=== PATIENT | male | born 1970 ===

== ENCOUNTER 2019-03-02 09:49 | Day surgery (SDC) | payer OTHER, SELFPAY ==
--- NOTE | 2019-03-02 | PATH_ITS ---
[facility] Accession Number: [id number] . 01 Material submitted: . PART A: colon - 25CM COLON POLYPS X3 PART B: colon - 90CM COLON POLYPS X3 PART C: colon - 80CM COLON POLYP PART D: colon - 40CM COLON POLYP . 02 Diagnosis: A. Colon At 25 CM, Polyps: Fragment of tubular adenoma and fragments of hyperplastic polyp (3 polyps removed). . B. Colon At 90 CM, Polyps: Fragments of tubular adenoma and fragments of hyperplastic polyp (3 polyps removed). . C. Colon At 80 CM, Polyp: Serrated lesion, cannot exclude sessile serrated adenoma. . D. Colon At 40 CM, Polyp: Submucosal leiomyoma. Negative for cytologic dysplasia or malignancy. [facility] 03/03/2019 1458 Local . 02 Electronically signed: . Ángel Daugherty MD, PhD, Pathologist NPI- [id number] . 01 Gross description: . Part A: 25CM COLON POLYPS X3: Received in formalin are multiple fragment(s) of poole, soft tissue measuring 0.1 x 0.1 x 0.1 cm to 0.3 x 0.2 x 0.2 cm submitted entirely in 1 cassette(s) Part B: 90CM COLON POLYPS X3: Received in formalin are multiple fragment(s) of poole, soft tissue measuring 0.1 x 0.1 x 0.1 cm to 0.3 x 0.2 x 0.2 cm submitted entirely in 1 cassette(s) Part C: 80CM COLON POLYP: Received in formalin is 1 fragment(s) of poole, soft tissue measuring 0.6 x 0.5 x 0.3 cm submitted entirely in 1 cassette(s) Part D: 40CM COLON POLYP: Received in formalin is 1 fragment(s) of poole, soft tissue measuring 0.6 x 0.6 x 0.5 cm submitted entirely in 1 cassette(s) /DM 03/02/[address] [place] [address] . Pathologist provided ICD-10: D12.6, K63.5 . 02 CPT . 103401, 421900, 005804, 280552 Performed at: 01 [facility] [address] [place] [address], [place], [place] [id number] MD Clyde Helms MD Phone: [phone] Performed at: 02 [facility] [address] [place], [place] [id number] MD Cassidy Gomez MD Phone: [phone]
[2019-03-02 10:24] VITALS: BP 142/95; PULSE 141; RESP 20; TEMP 36.4; O2SAT 100
[2019-03-02 10:28] VITALS: BMI 25.7
[2019-03-02] MEDS: SODIUM CHLORIDE 0.9% 1,000 ML 200 ML IV (10:35)
--- NOTE | 2019-03-02 10:45 | PM.HP.1 ---
History of Present Illness History of Present Illness Date Patient Seen: 03/02/19 Time Patient Seen: 10:45 Chief complaint: [id number] SCREENING COLONOSCOPY Narrative: The patient is a gentleman who had polyps removed about 6 years ago. He is here for follow-up colonoscopy. This is for screening purposes. Patient History Family & Social History Social History: household members none Meds Home Medications and Allergies Home Medications Medication Instructions Recorded Confirmed Type Unisom (doxylamine) 25 mg PO PRN PRN #0 MDD 30 05/07/16 03/02/19 History aspirin 325 mg PO PRN PRN #0 05/07/16 03/02/19 History lorazepam 1 - 2 tab PO Q4HP PRN #30 tab 05/08/16 03/02/19 Rx metformin [Glucophage] 500 mg PO BIDCC #60 tab 05/08/16 03/02/19 Rx oxycodone-acetaminophen [Percocet] 1 tab PO Q4HP PRN #30 tab 05/08/16 03/02/19 Rx amitriptyline 25 mg PO DAILY 03/02/19 03/02/19 History amlodipine 10 mg PO DAILY 03/02/19 03/02/19 History diazepam 10 mg PO BID PRN 03/02/19 03/02/19 History gabapentin 600 mg PO Q12H 03/02/19 03/02/19 History glipizide 10 mg PO BID 03/02/19 03/02/19 History sertraline 50 mg PO DAILY 03/02/19 03/02/19 History trazodone 50 mg PO DAILY 03/02/19 03/02/19 History Allergies Allergy/AdvReac Type Severity Reaction Status Date / Time Penicillins [PENICILLINS] Allergy Intermediate RASH Unverified 06/25/17 11:46 Review of Systems Review of Systems ROS Unobtainable: All systems reviewed & are unremarkable except as noted in HPI and below Gastrointestinal Comments: Has lost about 50 lb due to stress and cessation of alcohol use Exam Vital Signs (past 8 hours): - 03/02/19 10:24 Temperature 97.5 F L Pulse Rate 141 H Respiratory Rate 20 Blood Pressure 142/95 H Pulse Oximetry 100 Oxygen Delivery Method Room Air Narrative Exam Narrative: Pleasant cooperative patient no apparent distress. Lungs are clear to auscultation. No rales or rhonchi. Heart regular rate and rhythm no murmur gallop. Abdomen is soft nontender without mass. Patient has a large diastasis recti. No obvious hernias. Patient is alert and oriented x3. Assessment & Plan Assessment & Plan narrative: The patient for a screening colonoscopy. I have discussed the procedure with them. Risks of bleeding, perforation which would necessitate major operation, failure to find remove all lesions, the potential tattoo were all discussed. All questions were answered. They wished to proceed.
--- NOTE | 2019-03-02 10:51 | PM.PREOP ---
Pre-operative Note Interval Note History & Physical reviewed/Exam performed by Physician: Yes Changes to H&P: No ASA Class (for procedural sedation): II
[2019-03-02] MEDS: MIDAZOLAM 5 MG/5 ML VIAL IV (11:30)
[2019-03-02] MEDS: fentaNYL 250 MCG/5 ML INJ IV (11:30)
--- NOTE | 2019-03-02 11:46 | PM.OP.ENDO ---
Operative Date/Time/Diagnoses Date of procedure: 03/02/19 Time of procedure: 11:46 Pre-op diagnosis: Screening exam. Last exam about 5 years ago. Patient had polyps removed at that time. Post-op diagnosis: same (Multiple polyps) Procedure & Clinicians Study performed: Colonoscopy with cold biopsy and hot snare polypectomy Same procedure as scheduled: Yes Indications: Screening. Patient 48. Has a history of polyps on his prior exam. Surgeon: Jorge Mathias Procedure Notes SCOAP/Timeout: Perform Procedure in detail: The patient was placed in the left lateral decubitus position and underwent IV sedation directed by the surgeon consisting of fentanyl and Versed. Digital exam was unremarkable. Prostate is normal without a palpable mass. The scope was inserted and advanced through the rectum into the sigmoid, descending, transverse, and ascending colon. I removed 3 polyps at about [address] This was done with cold biopsy forceps. The patient was also noted to have a few sigmoid diverticuli on the way in. Pressure was applied and we made our way to the cecum.. The cecum was reached identified by the ileocecal valve and the appendiceal opening. The ileocecal valve was successfully cannulated. The terminal ileum was normal in appearance. The scope was gradually brought out. Polyps were found at 90 cm (there were 3) 80 cm (this was removed with a hot snare) and an additional polyp at 40 cm which was also removed with a hot snare.. The scope ultimately was retroflexed in the rectum. The appearance was remarkable for some fairly prominent veins/hemorrhoids without ulceration.. The scope was removed and the patient tolerated the procedure well Scope withdrawal time: At least 10 minutes(33 total) Sedation minutes: 54 Findings: diverticulosis and polyp (Eight total were removed) Specimen(s): other (Polyps) Complications: none Post-procedure Recommendations: Colonscopy in 3 years Follow up: as needed Disposition: PACU
[2019-03-02 11:50] VITALS: BP 112/67; PULSE 99; RESP 13; TEMP 36.7; O2SAT 98
[2019-03-02 11:55] VITALS: BP 115/67; PULSE 95; RESP 13; O2SAT 98
[2019-03-02 11:58] VITALS: BP 125/71; PULSE 90; RESP 22; O2SAT 98
[2019-03-02 12:16] VITALS: BP 135/91; PULSE 90; RESP 17; TEMP 36.1; O2SAT 97
== END 2019-03-02 12:25 | disposition home or self-care (01) ==
PROVIDERS: PCP Family Medicine; Visit Provider Specialist
PROC: 0DJD8ZZ Inspection of Lower Intestinal Tract, Via Natural or Artificial Opening Endoscopic (ICD-10-PCS; CPT 45378; principal; 2019-03-02 10:45)
DX: Z12.11 Encounter for screening for malignant neoplasm of colon (principal); Z86.010 Personal history of colon polyps; K57.30 Diverticulosis of large intestine without perforation or abscess without bleeding; D12.6 Benign neoplasm of colon, unspecified
CPT/HCPCS: 45385; 45380; 99152; 99153; J2250; J3010